=== PATIENT | male | born 1970 | race Caucasian/White ===

== ENCOUNTER 2016-11-24 20:58 | Inpatient (IN) | payer SELFPAY ==
[~2016-11-24] VITALS: Ht 182.9 cm; Wt 88.1 kg
[2016-11-24 21:36] LABS: BASO # 0.1 x10^3/uL (0.0-0.2); BASO % 1 % (0-3); EOS % 2 % (0-3); HEMATOCRIT 50.2 % (39.0-53.0); HEMOGLOBIN 16.9 g/dL (13.0-17.5); LYMPH % 24 % (24-48); MEAN CORPUSCULAR HEMOGLOBIN 31 pg (25-35); MEAN CORPUSCULAR HGB CONC 34 g/dL (31-37); MEAN CORPUSCULAR VOLUME 90 fL (79-100); MONO % 7 % (0-9); NEUT % 66 % (31-73); PLATELET COUNT 286 x10^3/uL (140-400); RED BLOOD COUNT 5.55 x10^6/uL (4.30-5.70); RED CELL DISTRIBUTION WIDTH 13.2 % (11.5-14.5); WHITE BLOOD COUNT 8.4 x10^3/uL (4.0-11.0)
--- NOTE | 2016-11-24 21:36 | PHYS DOC ---
Past Medical History Past Medical History: Anxiety, Hypertension, [place], Other Additional Past Medical Histor: TBI - Memory problems, Cardiac arrest Past Surgical History: Appendectomy Alcohol Use: Occasionally Drug Use: Methamphetamine Adult General Chief Complaint Chief Complaint: HYPERTENSION HPI HPI Patient is a 46 year old F who presents with hypertension and chest pain. Patient is an alcoholic who is at a rehabilitation facility called [facility] who sent him over to the emergency room to be evaluated for his elevated blood pressure. Patient states he has not drank in over a week. Patient is from [place] and here just for rehabilitation. Patient does take blood pressure medication. Patient states he's had no history of a CABG or bypass surgery however did have cardiac arrest and was brought back after multiple rounds of CPR. In the emergency room patient complains of some chest tightness with some peripheral anesthesias. Patient denies any shortness of breath. Patient denies any nausea/vomiting/diarrhea. Patient states he does have a history of anxiety however does not feel anxious at this time. Patient has no other complaints. Review of Systems Review of Systems GEN: Denies fevers, chills, sweats HEENT: Denies blurred vision, sore throat CV: chest pain RESP: Denies shortness of air, cough GI: Denies n/v/d NEURO: Paresthesias MSK: Denies weakness, joint pain/swelling Current Medications Current Medications Current Medications Medications (Trade) Dose Ordered Sig/Shannan Start Time Stop Time Status Last Admin Dose Admin Info (Do NOT chart on this entry -- for MONITORING) 1 each PRN DAILY PRN 11/24/16 22:15 11/26/16 22:14 Iohexol (Omnipaque 300 Mg/ml) 75 ml 1X ONCE 11/24/16 22:30 11/24/16 22:31 DC 11/24/16 22:18 75 ML Allergies Allergies Allergies Coded Allergies Type Severity Reaction Last Updated Verified No Known Drug Allergies 11/24/16 No Physical Exam Physical Exam GEN.: No apparent distress. Alert and oriented. HEENT: Head is normocephalic, atraumatic NECK: Supple. LUNGS: CTAB. HEART: RRR, S1, S2 present. Peripheral pulses intact ABDOMEN: Soft, nontender. Positive bowel sounds. EXTREMITIES: Without any cyanosis. NEUROLOGIC: Normal speech, normal tone PSYCHIATRIC: Normal affect, normal mood. SKIN: No ulcerations Current Patient Data Vital Signs Vital Signs Date Time Temp Pulse Resp B/P (MAP) Pulse Ox O2 Delivery O2 Flow Rate FiO2 11/24/16 22:15 77 11/24/16 21:30 14 11/24/16 20:58 98.5 148/102 (117) 99 Room Air 98.5 Lab Values Laboratory Tests Test 11/24/16 21:00 11/24/16 21:05 White Blood Count 8.4 x10^3/uL (4.0-11.0) Red Blood Count 5.55 x10^6/uL (4.30-5.70) Hemoglobin 16.9 g/dL (13.0-17.5) Hematocrit 50.2 % (39.0-53.0) Mean Corpuscular Volume 90 fL (79-100) Mean Corpuscular Hemoglobin 31 pg (25-35) Mean Corpuscular Hemoglobin Concent 34 g/dL (31-37) Red Cell Distribution Width 13.2 % (11.5-14.5) Platelet Count 286 x10^3/uL (140-400) Neutrophils (%) (Auto) 66 % (31-73) Lymphocytes (%) (Auto) 24 % (24-48) Monocytes (%) (Auto) 7 % (0-9) Eosinophils (%) (Auto) 2 % (0-3) Basophils (%) (Auto) 1 % (0-3) Neutrophils # (Auto) 5.6 x10^3uL (1.8-7.7) Lymphocytes # (Auto) 2.0 x10^3/uL (1.0-4.8) Monocytes # (Auto) 0.6 x10^3/uL (0.0-1.1) Eosinophils # (Auto) 0.2 x10^3/uL (0.0-0.7) Basophils # (Auto) 0.1 x10^3/uL (0.0-0.2) Sodium Level 142 mmol/L (136-145) Potassium Level 4.0 mmol/L (3.5-5.1) Chloride Level 104 mmol/L (98-107) Carbon Dioxide Level 33 mmol/L (21-32) H Anion Gap 5 (6-14) L Blood Urea Nitrogen 10 mg/dL (8-26) Creatinine 0.9 mg/dL (0.7-1.3) Estimated GFR (Cockcroft-Gault) 90.1 BUN/Creatinine Ratio 11 (6-20) Glucose Level 84 mg/dL (70-99) Calcium Level 8.9 mg/dL (8.5-10.1) Total Bilirubin 0.2 mg/dL (0.2-1.0) Aspartate Amino Transferase (AST) 19 U/L (15-37) Alanine Aminotransferase (ALT) 32 U/L (16-63) Alkaline Phosphatase 72 U/L (46-116) Troponin I Quantitative < 0.017 ng/mL (0.000-0.055) Total Protein 6.7 g/dL (6.4-8.2) Albumin 3.5 g/dL (3.4-5.0) Albumin/Globulin Ratio 1.1 (1.0-1.7) Ethyl Alcohol Level < 10 mg/dL (0-10) Urine Collection Type Unknown Urine Color Yellow Urine Clarity Clear Urine pH 6.5 Urine Specific [place] 1.015 Urine Protein Negative mg/dL (NEG-TRACE) Urine Glucose (UA) Negative mg/dL (NEG) Urine Ketones (Stick) Negative mg/dL (NEG) Urine Blood Negative (NEG) Urine Nitrite Negative (NEG) Urine Bilirubin Negative (NEG) Urine Urobilinogen Dipstick 0.2 mg/dL (0.2 mg/dL) Urine Leukocyte Esterase Negative (NEG) Urine RBC Occ /HPF (0-2) Urine WBC 0 /HPF (0-4) Urine Squamous Epithelial Cells Few /LPF Urine Bacteria 0 /HPF (0-FEW) Urine Mucus Slight /LPF Urine Opiates Screen Neg (NEG) Urine Methadone Screen Neg (NEG) Urine Barbiturates Neg (NEG) Urine Phencyclidine Screen Neg (NEG) Urine Amphetamine/Methamphetamine Neg (NEG) Urine Benzodiazepines Screen Neg (NEG) Urine Cocaine Screen Neg (NEG) Urine Cannabinoids Screen Neg (NEG) Urine Ethyl Alcohol Neg (NEG) Laboratory Tests 11/24/16 21:00 Laboratory Tests 11/24/16 21:00 EKG EKG 2103: Normal sinus rhythm rate of 79 no STEMI[] Radiology/Procedures Radiology/Procedures CTA chest NAD[] Course & Med Decision Making Course & Med Decision Making Pertinent Labs and Imaging studies reviewed. (See chart for details) ED course: Patient was seen and examined emergency room cardiac workup was ordered along with urine drug screen and alcohol level and a CT angios the chest 2249: Patient was reevaluated and updated on lab results and CT findings, patient still has tightness in his chest does not feel right and left, hospital for further workup 2304: Discussed CC/HP/PMH with Dr. azevedo and recommends admit [] MDM: After reviewing the chart, CC/HPI/PMH, physical exam, [lab results], [ radiological results], I do not believe the patient having a STEMI, PE or thoracic aortic dissection. Given the patient's history of cardiac arrest and persistent symptoms we'll admit him for further evaluation and management. [] Dragon Disclaimer Dragon Disclaimer This electronic medical record was generated, in whole or in part, using a voice recognition dictation system. Departure Departure Impression: Primary Impression: Chest pain Additional Impressions: Hypertension Alcohol abuse Disposition: ADMITTED INPATIENT Admitting Physician: Alda Azevedo Condition: STABLE Problem Qualifiers MILLY ROY DO Nov 24, 2016 21:36
[2016-11-24 21:39] LABS: BILIRUBIN,URINE NEGATIVE (NEG); GLUCOSE,URINE NEGATIVE (NEG); NITRITE,URINE NEGATIVE (NEG); PH,URINE 6.5; PROTEIN,URINE NEGATIVE (NEG-TRACE); UROBILINOGEN,URINE 0.2 mg/dL (0.2 mg/dL)
[2016-11-24 21:44] LABS: BACTERIA,URINE 0 /HPF (0-FEW); BARBITURATES NEG (NEG); BENZODIAZEPINES NEG (NEG); CANNABINOIDS NEG (NEG); COCAINE NEG (NEG); METHADONE NEG (NEG); OPIATES NEG (NEG); PHENCYCLIDINE NEG (NEG); RBC,URINE OCC /HPF (0-2); SQUAMOUS EPITHELIAL CELL,UR FEW /LPF; WBC,URINE 0 /HPF (0-4)
[2016-11-24 21:48] LABS: CALCIUM 8.9 mg/dL (8.5-10.1); CREATININE 0.9 mg/dL (0.7-1.3); GFR 90.1
[2016-11-24 21:54] LABS: ALBUMIN 3.5 g/dL (3.4-5.0); ALBUMIN/GLOBULIN RATIO 1.1 (1.0-1.7); TOTAL BILIRUBIN 0.2 mg/dL (0.2-1.0); TOTAL PROTEIN 6.7 g/dL (6.4-8.2)
[2016-11-24] MEDS ORDERED: CONTRAST GIVEN MC PRN (22:15)
[2016-11-24] MEDS ORDERED: IOHEXOL 300 MG/ML 75 ML VIAL IV ONE (22:30)
--- NOTE | 2016-11-24 22:44 | RAD ---
CT pulmonary angiogram with intravenous contrast History: Chest pain Comparison: None. Technique: CT pulmonary angiogram of the chest with attention to the pulmonary arteries was performed after the administration of intravenous contrast, 75 mL Omnipaque-300. Axial 2-D reconstructions were obtained. Coronal 3-D MIPS were obtained of the pulmonary arterial vasculature of the chest. Exposure: One or more of the following individualized dose reduction techniques were utilized for this examination: 1. Automated exposure control 2. Adjustment of the mA and/or kV according to patient size 3. Use of iterative reconstruction technique Findings: Pulmonary arteries are adequately opacified. There is no evidence of pulmonary embolism. Trachea and mainstem bronchi appear patent. Visualized thyroid appears symmetric. No acute airspace disease is identified. No pneumothorax or pleural effusion is seen. No mediastinal lymphadenopathy is seen. Thoracic aorta has normal caliber. Heart and pericardium are unremarkable. Calcified left mediastinal lymph nodes are seen. Impression: 1. No evidence of pulmonary embolism. No acute abnormality identified in the chest. Electronically signed by: Wili Bond MD (11/24/2016 10:40 PM) [facility]
[2016-11-24] MEDS ORDERED: MORPHINE SULFATE 4 MG/ML DISP.SYRIN. IV PRN (23:00)
[2016-11-24] MEDS ORDERED: ONDANSETRON PF 4 MG/2 ML VIAL. IV PRN (23:00)
[2016-11-24] MEDS ORDERED: ACETAMINOPHEN 325 MG TABLET. PO PRN (23:00)
[2016-11-24] MEDS ORDERED: NITROGLYCERIN SUBLINGUAL 0.4 MG BOTTLE OF 25. SL PRN (23:00)
[2016-11-25 01:20] VITALS: BP 135/94
[2016-11-25] MEDS ORDERED: DIAZ5TAB PO (01:26)
[2016-11-25] MEDS ORDERED: [UNRECOGNIZED DRUG - OTHER] (01:26)
[2016-11-25] MEDS ORDERED: diphenhydrAMINE HCL 25 MG CAPSULE PO PRN (01:45)
[2016-11-25 03:00] VITALS: BP 150/95
[2016-11-25 05:24] LABS: BASO # 0.1 x10^3/uL (0.0-0.2); BASO % 1 % (0-3); EOS % 3 % (0-3); HEMATOCRIT 46.9 % (39.0-53.0); HEMOGLOBIN 15.7 g/dL (13.0-17.5); LYMPH # 2.3 x10^3/uL (1.0-4.8); LYMPH % 30 % (24-48); MEAN CORPUSCULAR HEMOGLOBIN 30 pg (25-35); MEAN CORPUSCULAR HGB CONC 33 g/dL (31-37); MEAN CORPUSCULAR VOLUME 91 fL (79-100); MONO % 6 % (0-9); NEUT % 60 % (31-73); PLATELET COUNT 239 x10^3/uL (140-400); RED BLOOD COUNT 5.18 x10^6/uL (4.30-5.70); RED CELL DISTRIBUTION WIDTH 13.7 % (11.5-14.5); WHITE BLOOD COUNT 7.6 x10^3/uL (4.0-11.0)
[2016-11-25 05:54] LABS: CALCIUM 8.6 mg/dL (8.5-10.1); CREATININE 0.9 mg/dL (0.7-1.3); GFR 90.1; POTASSIUM 3.9 mmol/L (3.5-5.1)
[2016-11-25 07:30] VITALS: BP 138/94
--- NOTE | 2016-11-25 07:43 | RAD ---
Indication: Atraumatic midsternal chest pain. Technique: Upright portable chest radiograph was obtained. No comparison is available. Findings: The lungs are clear. The heart is not enlarged and there is no heart failure. There are calcified mediastinal and left hilar lymph nodes. Bony structures are intact. Leads overlie the patient. Impression: No acute thoracic findings.
--- NOTE | 2016-11-25 08:13 | EKG ---
[facility] [address] [place] [address] Test Date: 2016-11-24 Test Time: 21:03:12 Pat Name: MARY TORRES Department: Room: Gender: M [employer] Liaison: : 1970 Requested By: MILLY ROY Order Number: [id number] Reading MD: Measurements Intervals [place] Rate: 79 P: 41 TN: 158 QRS: 39 QRSD: 84 T: 29 QT: 340 QTc: 395 Interpretive Statements SINUS RHYTHM NON SPECIFIC ST-T ABNORMALITY (ELEVATION) OTHERWISE NORMAL ECG RI6.01 Unconfirmed report No previous ECG available for comparison
--- NOTE | 2016-11-25 08:43 | PDOC1 ---
History and Physical Date of Admission Date of Admission DATE: 11/25/16 TIME: 08:39 Identification/Chief Complaint Chief Complaint chest pain Problems: Source Source: Chart review, Patient History of Present Illness History of Present Illness Mr. Felix is a 46 year old F who presents with acute and worsening chest pain. PAin to left chest, also right shoulder and radiation down arm. Sharp and stabbing pain with dyspnea at rest, no new MOTA. pain better with iv pain meds, Patient is an alcoholic who is at a rehabilitation facility called [facility] Patient had previously taken blood pressure medication. no other drug or tobacco history and no EtOH over one week, EtOH intake was about a pint a day, and ramping up. Prior history of asphyxiation, (suicide attempt after drug allergy reaction) and cardiac arrest and was brought back after multiple rounds of CPR. 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) Heme/Onc: No pertinent hx Hepatobiliary: No pertinent hx Psych: Addictions, Other Rheumatologic: No pertinent hx Infectious disease: No pertinent hx ENT: No pertinent hx Renal/: No pertinent hx Endocrine: No pertinent hx Dermatology: No pertinent hx Family History Family History: Alcohol Abuse Social History Smoke: No ALCOHOL: heavy (quit) Drugs: None Current Problem List Problem List Problems Medical Problems: (1) Alcohol abuse Status: Acute (2) Chest pain Status: Acute (3) Hypertension Status: Acute Problems: Current Medications Current Medications Current Medications Iohexol (Omnipaque 300 Mg/ml) 75 ml 1X ONCE IV Last administered on t 22:18; Start 11/24/16 at 22:30; Stop 11/24/16 at 22:31; Status DC Info (Do NOT chart on this entry -- for MONITORING) 1 each PRN DAILY PRN MC SEE COMMENTS; Start 11/24/16 at 22:15; Stop 11/26/16 at 22:14 Ondansetron HCl (Zofran) 4 mg PRN Q8HRS PRN IV NAUSEA/VOMITING; Start at 23:00; Stop 11/25/16 at 22:59 Morphine Sulfate 4 mg PRN Q2HR PRN IV SEVERE PAIN; Start 11/24/16 at 23:00; Stop 11/25/16 at 22:59 Acetaminophen (Tylenol) 650 mg PRN Q4HRS PRN PO FEVER; Start 11/24/16 at 23:00 ; Stop 11/25/16 at 22:59 Nitroglycerin (Nitrostat) 0.4 mg PRN Q5MIN PRN SL CHEST PAIN; Start 11/24/16 at 23:00; Stop 11/25/16 at 22:59 Diphenhydramine HCl (Benadryl) 50 mg PRN Q6HRS PRN PO ITCHING Last administered on 11/25/16t 01:57; Start 11/25/16 at 01:45 Zolpidem Tartrate (Ambien) 5 mg PRN QHS PRN PO INSOMNIA; Start 11/25/16 at 21: 00 Pneumococcal Polyvalent Vaccine (Pneumovax 23) 0.5 ml ONCE ONCE VAX IM ; Start 11/25/16 at 09:00; Stop 11/25/16 at 09:01 Influenza Virus Vaccine Quadrival (Fluarix Quad [id number] Syringe) 0.5 ml ONCE ONCE VAX IM ; Start 11/25/16 at 09:00; Stop 11/25/16 at 09:01 Active Scripts Active Reported [b/p medicine] Valium (Diazepam) 5 Mg Tablet 5 Mg PO BID Allergies Allergies: Coded Allergies: No Known Drug Allergies (Unverified , 11/24/16) ROS General: No: Chills, Night Sweats, Fatigue, Malaise, Appetite, Other PSYCHOLOGICAL ROS: No: Anxiety, Behavioral Disorder, Concentration difficultie , Decreased libido, Depression, Disorientation, Hallucinations, Hostility, Irritablity, Memory difficulties, Mood Swings, Obsessive thoughts, Physical abuse, Sexual abuse, Sleep disturbances, Suicidal ideation, Other Eyes: No Blurry vision, No Decreased vision, No Double vision, No Dry eyes, No Excessive tearing, No Eye Pain, No Itchy Eyes, No Loss of vision, No Photophobia , No Scotomata, No Uses contacts, No Uses glasses, No Other HEENT: No: Heacaches, Visual Changes, Hearing change, Nasal congestion, Nasal discharge, Oral lesions, Sinus pain, Sore Throat, Epistaxis, Sneezing, Snoring, Tinnitus, Vertigo, Vocal changes, Other Respiratory: No: Cough, Hemoptysis, Orthopnea, Pleuritic Pain, Shortness of breath, SOB with excertion, Sputum Changes, Stridor, Tachypnea, Wheezing, Other Cardiovascular: yes Chest Pain, No Palpitations, No Orthopnea, No Paroxysmal Noc. Dyspnea, No Edema, No Lt Headedness, No Other Gastrointestinal: No Nausea, No Vomiting, No Abdominal Pain, No Diarrhea, No Constipation, No Melena, No Hematochezia, No Other Genitourinary: No Dysuria, No Frequency, No Incontinence, No Hematuria, No Retention, No Discharge, No Urgency, No Pain, No Flank Pain, No Other, No , No , No , No , No , No , No Musculoskeletal: No Gait Disturbance, No Joint Pain, No Joint Stiffness, No Joint Swelling, No Muscle Pain, No Muscular Weakness, No Pain In:, No Swelling In:, No Other Neurological: No Behavorial Changes, No Bowel/Bladder ControlChng, No Confusion , No Dizziness, No Gait Disturbance, No Headaches, No Impaired Coord/balance, No Memory Loss, No Numbness/Tingling, No Seizures, No Speech Problems, No Tremors, No Visual Changes, No Weakness, No Other Skin: No Dry Skin, No Eczema, No Hair Changes, No Lumps, No Mole Changes, No Mottling, No Nail Changes, No Pruritus, No Rash, No Skin Lesion Changes, No Other, No Acne Physical Exam General: Alert, Oriented X3, Cooperative, No acute distress HEENT: Atraumatic, EOMI, Mucous membr. moist/pink Lungs: Clear to auscultation, Normal air movement Heart: no gallops, no murmurs Abdomen: Normal bowel sounds, Soft Rectal Exam: not examined Extremities: No clubbing, No edema Skin: No rashes, No breakdown, No significant lesion Neuro: Normal gait, Normal speech, Normal tone, Sensation intact Psych/Mental Status: Mental status NL, Mood NL Vitals Vitals Vital Signs Date Time Temp Pulse Resp B/P (MAP) Pulse Ox O2 Delivery O2 Flow Rate FiO2 11/25/16 03:00 98.2 67 20 150/95 (113) 95 Room Air 98.2 Labs Labs Laboratory Tests Test 11/24/16 21:00 11/24/16 21:05 11/25/16 04:46 White Blood Count 8.4 x10^3/uL (4.0-11.0) 7.6 x10^3/uL (4.0-11.0) Red Blood Count 5.55 x10^6/uL (4.30-5.70) 5.18 x10^6/uL (4.30-5.70) Hemoglobin 16.9 g/dL (13.0-17.5) 15.7 g/dL (13.0-17.5) Hematocrit 50.2 % (39.0-53.0) 46.9 % (39.0-53.0) Mean Corpuscular Volume 90 fL (79-100) 91 fL (79-100) Mean Corpuscular Hemoglobin 31 pg (25-35) 30 pg (25-35) Mean Corpuscular Hemoglobin Concent 34 g/dL (31-37) 33 g/dL (31-37) Red Cell Distribution Width 13.2 % (11.5-14.5) 13.7 % (11.5-14.5) Platelet Count 286 x10^3/uL (140-400) 239 x10^3/uL (140-400) Neutrophils (%) (Auto) 66 % (31-73) 60 % (31-73) Lymphocytes (%) (Auto) 24 % (24-48) 30 % (24-48) Monocytes (%) (Auto) 7 % (0-9) 6 % (0-9) Eosinophils (%) (Auto) 2 % (0-3) 3 % (0-3) Basophils (%) (Auto) 1 % (0-3) 1 % (0-3) Neutrophils # (Auto) 5.6 x10^3uL (1.8-7.7) 4.6 x10^3uL (1.8-7.7) Lymphocytes # (Auto) 2.0 x10^3/uL (1.0-4.8) 2.3 x10^3/uL (1.0-4.8) Monocytes # (Auto) 0.6 x10^3/uL (0.0-1.1) 0.5 x10^3/uL (0.0-1.1) Eosinophils # (Auto) 0.2 x10^3/uL (0.0-0.7) 0.2 x10^3/uL (0.0-0.7) Basophils # (Auto) 0.1 x10^3/uL (0.0-0.2) 0.1 x10^3/uL (0.0-0.2) Sodium Level 142 mmol/L (136-145) 143 mmol/L (136-145) Potassium Level 4.0 mmol/L (3.5-5.1) 3.9 mmol/L (3.5-5.1) Chloride Level 104 mmol/L (98-107) 106 mmol/L (98-107) Carbon Dioxide Level 33 mmol/L (21-32) 31 mmol/L (21-32) Anion Gap 5 (6-14) 6 (6-14) Blood Urea Nitrogen 10 mg/dL (8-26) 10 mg/dL (8-26) Creatinine 0.9 mg/dL (0.7-1.3) 0.9 mg/dL (0.7-1.3) Estimated GFR (Cockcroft-Gault) 90.1 90.1 BUN/Creatinine Ratio 11 (6-20) Glucose Level 84 mg/dL (70-99) 96 mg/dL (70-99) Calcium Level 8.9 mg/dL (8.5-10.1) 8.6 mg/dL (8.5-10.1) Total Bilirubin 0.2 mg/dL (0.2-1.0) Aspartate Amino Transf (AST/SGOT) 19 U/L (15-37) Alanine Aminotransferase (ALT/SGPT) 32 U/L (16-63) Alkaline Phosphatase 72 U/L (46-116) Troponin I Quantitative < 0.017 ng/mL (0.000-0.055) < 0.017 ng/mL (0.000-0.055) Total Protein 6.7 g/dL (6.4-8.2) Albumin 3.5 g/dL (3.4-5.0) Albumin/Globulin Ratio 1.1 (1.0-1.7) Ethyl Alcohol Level < 10 mg/dL (0-10) Urine Collection Type Unknown Urine Color Yellow Urine Clarity Clear Urine pH 6.5 Urine Specific [place] 1.015 Urine Protein Negative mg/dL (NEG-TRACE) Urine Glucose (UA) Negative mg/dL (NEG) Urine Ketones (Stick) Negative mg/dL (NEG) Urine Blood Negative (NEG) Urine Nitrite Negative (NEG) Urine Bilirubin Negative (NEG) Urine Urobilinogen Dipstick 0.2 mg/dL (0.2 mg/dL) Urine Leukocyte Esterase Negative (NEG) Urine RBC Occ /HPF (0-2) Urine WBC 0 /HPF (0-4) Urine Squamous Epithelial Cells Few /LPF Urine Bacteria 0 /HPF (0-FEW) Urine Mucus Slight /LPF Urine Opiates Screen Neg (NEG) Urine Methadone Screen Neg (NEG) Urine Barbiturates Neg (NEG) Urine Phencyclidine Screen Neg (NEG) Urine Amphetamine/Methamphetamine Neg (NEG) Urine Benzodiazepines Screen Neg (NEG) Urine Cocaine Screen Neg (NEG) Urine Cannabinoids Screen Neg (NEG) Urine Ethyl Alcohol Neg (NEG) Laboratory Tests Test 11/24/16 21:00 11/24/16 21:05 11/25/16 04:46 White Blood Count 8.4 x10^3/uL (4.0-11.0) 7.6 x10^3/uL (4.0-11.0) Red Blood Count 5.55 x10^6/uL (4.30-5.70) 5.18 x10^6/uL (4.30-5.70) Hemoglobin 16.9 g/dL (13.0-17.5) 15.7 g/dL (13.0-17.5) Hematocrit 50.2 % (39.0-53.0) 46.9 % (39.0-53.0) Mean Corpuscular Volume 90 fL (79-100) 91 fL (79-100) Mean Corpuscular Hemoglobin 31 pg (25-35) 30 pg (25-35) Mean Corpuscular Hemoglobin Concent 34 g/dL (31-37) 33 g/dL (31-37) Red Cell Distribution Width 13.2 % (11.5-14.5) 13.7 % (11.5-14.5) Platelet Count 286 x10^3/uL (140-400) 239 x10^3/uL (140-400) Neutrophils (%) (Auto) 66 % (31-73) 60 % (31-73) Lymphocytes (%) (Auto) 24 % (24-48) 30 % (24-48) Monocytes (%) (Auto) 7 % (0-9) 6 % (0-9) Eosinophils (%) (Auto) 2 % (0-3) 3 % (0-3) Basophils (%) (Auto) 1 % (0-3) 1 % (0-3) Neutrophils # (Auto) 5.6 x10^3uL (1.8-7.7) 4.6 x10^3uL (1.8-7.7) Lymphocytes # (Auto) 2.0 x10^3/uL (1.0-4.8) 2.3 x10^3/uL (1.0-4.8) Monocytes # (Auto) 0.6 x10^3/uL (0.0-1.1) 0.5 x10^3/uL (0.0-1.1) Eosinophils # (Auto) 0.2 x10^3/uL (0.0-0.7) 0.2 x10^3/uL (0.0-0.7) Basophils # (Auto) 0.1 x10^3/uL (0.0-0.2) 0.1 x10^3/uL (0.0-0.2) Sodium Level 142 mmol/L (136-145) 143 mmol/L (136-145) Potassium Level 4.0 mmol/L (3.5-5.1) 3.9 mmol/L (3.5-5.1) Chloride Level 104 mmol/L (98-107) 106 mmol/L (98-107) Carbon Dioxide Level 33 mmol/L (21-32) 31 mmol/L (21-32) Anion Gap 5 (6-14) 6 (6-14) Blood Urea Nitrogen 10 mg/dL (8-26) 10 mg/dL (8-26) Creatinine 0.9 mg/dL (0.7-1.3) 0.9 mg/dL (0.7-1.3) Estimated GFR (Cockcroft-Gault) 90.1 90.1 BUN/Creatinine Ratio 11 (6-20) Glucose Level 84 mg/dL (70-99) 96 mg/dL (70-99) Calcium Level 8.9 mg/dL (8.5-10.1) 8.6 mg/dL (8.5-10.1) Total Bilirubin 0.2 mg/dL (0.2-1.0) Aspartate Amino Transf (AST/SGOT) 19 U/L (15-37) Alanine Aminotransferase (ALT/SGPT) 32 U/L (16-63) Alkaline Phosphatase 72 U/L (46-116) Troponin I Quantitative < 0.017 ng/mL (0.000-0.055) < 0.017 ng/mL (0.000-0.055) Total Protein 6.7 g/dL (6.4-8.2) Albumin 3.5 g/dL (3.4-5.0) Albumin/Globulin Ratio 1.1 (1.0-1.7) Ethyl Alcohol Level < 10 mg/dL (0-10) Urine Collection Type Unknown Urine Color Yellow Urine Clarity Clear Urine pH 6.5 Urine Specific [place] 1.015 Urine Protein Negative mg/dL (NEG-TRACE) Urine Glucose (UA) Negative mg/dL (NEG) Urine Ketones (Stick) Negative mg/dL (NEG) Urine Blood Negative (NEG) Urine Nitrite Negative (NEG) Urine Bilirubin Negative (NEG) Urine Urobilinogen Dipstick 0.2 mg/dL (0.2 mg/dL) Urine Leukocyte Esterase Negative (NEG) Urine RBC Occ /HPF (0-2) Urine WBC 0 /HPF (0-4) Urine Squamous Epithelial Cells Few /LPF Urine Bacteria 0 /HPF (0-FEW) Urine Mucus Slight /LPF Urine Opiates Screen Neg (NEG) Urine Methadone Screen Neg (NEG) Urine Barbiturates Neg (NEG) Urine Phencyclidine Screen Neg (NEG) Urine Amphetamine/Methamphetamine Neg (NEG) Urine Benzodiazepines Screen Neg (NEG) Urine Cocaine Screen Neg (NEG) Urine Cannabinoids Screen Neg (NEG) Urine Ethyl Alcohol Neg (NEG) VTE Prophylaxis Ordered VTE Prophylaxis Devices: No VTE Pharmacological Prophylaxi: Yes Assessment/Plan Assessment/Plan EtOH abuse in remission, in current treatment anxiety stable, none current chest pain, angina, check lipids angina to right arm, 7/10 pain with pressure, r.o ACS htn costochrondritis left chest, will lidoderm 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
[2016-11-25] MEDS ORDERED: LIDOCAINE (700MG/PATCH) PATCH. TD SCH (09:00)
[2016-11-25] MEDS ORDERED: FLU VACC QS2017-18 (36MOS+)/PF 0.5 ML SYRINGE. VAX IM ONE (09:00)
[2016-11-25] MEDS ORDERED: PNEUMOC CONJ VACC 23-VALENT 0.5 ML VIAL. VAX IM ONE (09:00)
[2016-11-25] MEDS ORDERED: ENOXAPARIN 40 MG/0.4 ML SYRINGE. SQ SCH (09:00)
[2016-11-25 09:33] LABS: CHOLESTEROL/HDL RATIO 3.3
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
[2016-11-25 10:30] VITALS: BP 131/96
[2016-11-25] MEDS ORDERED: LISINOPRIL 5 MG TABLET. PO SCH (11:30)
--- NOTE | 2016-11-25 15:00 | RAD ---
APPROVED REPORT Test Type: Exercise Stress Nurse/Tech: cristo ricketts Test Indications: chest pain Cardiac History: HTN, NM, SEE EHR Medications: SEE EHR Medical History: NONE STATED, SEE EHR Resting ECG: SR Resting Heart Rate: 94 bpm Resting Blood Pressure: 145/86mmHg Pretest Chest Pain: No chest pain Nurse/Tech Notes LUNG SOUNDS CLEAR, S1S2 WNL. Consent: The procedure was explained to the patient in lay terms. Informed consent was witnessed. Gurdeep eout was entered into [employer]. History and Stress Test performed by RT Maxi (R) (N) Stress Symptoms LEG FATIGUE. PT WAS AT THE MOST BRISK WALK, NO QUITE A RUN. ABLE TO ANSWER QUESTIONS. OCCASIONAL PVC NOTED. POST EXERCISE Reason for Termination: Reached target heart rate Target HR: Yes Max HR: 152 bpm 104% of Maximum Predicted HR: 146 bpm Exercise duration: 9:31 min:sec, 4 Stage Exercise capacity: 13.4METs Max Blood Pressure: 157/94mmHg Blood Pressure response to exercise: Normal blood pressure response during stress. Heart Rate response to exercise: WNL Chest Pain: No. Arrhythmia: No. ST Change: No. INTERPRETATION Stress EKG Conclusion: Baseline EKG showed sinus rhythm. No ischemic changes at peak stress. No arr hythmias. Imaging Protocol IMAGE PROTOCOL: Rest Tc-99m/stress Tc-99m 1 day Rest: Stress: Viability: Radiopharm.Tc99m [id number] Sestamibi [id number] 34.6mCi Duration 15min. 10min. Img Date 11/25/2016 11/25/2016 Inj-Img [id number]. 60min. Rest Admin Site:IV - Left AntecubitalAdministrator:ELTON Falcon, ARRT (R)(N) Stress Admin Site: IV - Left AntecubitalAdministrator: RT Maxi (R)(N) STRESS DATA End Diast. Vol.130.0mlAv. Heart Rate98.0bpm End Syst. Vol.44.0mlCO Index BSA0.0L/min Myocardial Lxas863.0gEject. Ouezuekl50.0% Stress Rates Pk. Fill Rate3.91EDV/secLVtime Pk. Fill 181.88msec Pk. Empty Rate4.14ESV/secLVtime Pk. Eject77.79msec 1/3 Pk. Fill1.76EDV/sec Stress Scores Regional WT2.00Summed WT11.00 Regional WM0.00Summed WM4.00 Study quality was good. Left Ventricular size was Normal at Rest and Stress. Lung uptake was Normal. Left Ventricular ejection fraction is 66%. The rest and stress images show normal perfusion, normal contraction and thickening. LV Perf. Quant 17 Seg. SSS0.00 17 Seg. SRS7.00 17 Seg. SDS0.00 Stress Defect Extent (% LAD)0.00Rest Defect Extent (% LAD)20.00Rev. Defect Extent (% LAD)0.00 Stress Defect Extent (% LCX) 0.00Rest Defect Extent (% LCX)0.00Rev. Defect Extent (% LCX)0.00 Stress Defect Extent (% RCA)0.00Rest Defect Extent (% RCA)0.00Rev. Defect Extent (% RCA)0.00 Stress Defect Extent (% CROW)0.00Rest Defect Extent (% CROW)8.70Rev. Defect Extent (% CROW)0.00 Conclusion 1. Treadmill exercise cardioisotope stress test did not show any evidence of ischemia or infarct. 2. Normal left ventricular systolic function with ejection fraction calculated at 66%. 3. Patient had excellent activity tolerance. Low risk for cardiac events.
[2016-11-25 15:30] VITALS: BP 136/86
[2016-11-25] MEDS ORDERED: LISI-338 PO (17:09)
[2016-11-25] MEDS ORDERED: ZOLPIDEM 5 MG TABLET. PO PRN (21:00)
== END 2016-11-25 18:45 | disposition home or self-care (01) | DRG 206 ==
LOC: ER 20:58 → 5 NORTH 22:51
PROVIDERS: ADMIT Internal Medicine; ATTEND Internal Medicine
DX: M94.0 Chondrocostal junction syndrome [Tietze] (principal); Z86.74 Personal history of sudden cardiac arrest; I20.9 Angina pectoris, unspecified; E78.5 Hyperlipidemia, unspecified; F10.21 Alcohol dependence, in remission; F41.9 Anxiety disorder, unspecified; I10 Essential (primary) hypertension; F15.10 Other stimulant abuse, uncomplicated; I25.2 Old myocardial infarction; Z81.1 Family history of alcohol abuse and dependence; Z88.5 Allergy status to narcotic agent; Z90.49 Acquired absence of other specified parts of digestive tract; Z88.9 Allergy status to unspecified drugs, medicaments and biological substances; Z82.49 Family history of ischemic heart disease and other diseases of the circulatory system
CPT/HCPCS: 36415; 71010; 71275; 78452; 80048; 80053; 80061; 80307; 81001; 84484; 85025; 90686; 90732; 93005; 93017; 96374; 96376; A9500; G0480; J1650; Q0163; Q9967; 99285-25; G0479

== ENCOUNTER → 2018-12-15 | Outpatient (CLI) | payer OTHER, MEDICAID ==
[~2018-12-15] MED LIST: DIAZ5TAB PO; IBUP-1027 PO; LISI-338 PO; OLOPATADINE OU; OXYC1TAB15 PO; SERT50TA PO; [UNRECOGNIZED DRUG - OTHER]
--- NOTE | 2018-12-15 14:53 | RAD ---
EXAM: ULTRASOUND-GUIDED THYROID FINE-NEEDLE ASPIRATION. HISTORY: Right thyroid nodule. Ultrasound-guided biopsy is requested. FINDINGS: The procedure along with its risks and benefits were explained to the patient. They agreed to proceed. A timeout procedure was performed. Sonographic images of the thyroid gland were obtained. The 3.0 x 2.8 solid greater than cystic target nodule in the right lobe was adequately visualized for biopsy. The overlying skin was sterilely prepped and infiltrated with 1% lidocaine for local anesthesia. Under ultrasound guidance, 4 aspirates were obtained using 25-gauge needles. These were hand delivered to pathology who determined them adequate for diagnosis. A sterile dressing was placed. There were no immediate complications. IMPRESSION: 1. Successful ultrasound-guided fine-needle aspiration of the right thyroid nodule. Electronically signed by: Jovi Tamayo MD (12/15/2018 2:50 PM) [facility]
== END | disposition home or self-care (01) ==
LOC: US 14:00
PROVIDERS: ATTEND Surgery
DX: E04.1 Nontoxic single thyroid nodule (principal)
CPT/HCPCS: 10005; 76942; 88173; 88305

== ENCOUNTER 2019-01-12 06:44 | Observation (INO) | payer OTHER, MEDICAID ==
[2019-01-12] VITALS (11 sets, daily range): BP systolic 118–147; BP diastolic 67–99
[~2019-01-12] VITALS: Ht 182.9 cm; Wt 94.5 kg
[~2019-01-12 06:44] MED LIST changes: +ACETAMINOPHEN 500 MG TABLET PO PRN; +BUPIVACAINE-EPI 0.25%-1:200000 MPF 30 ML VIAL. INJ ONE; -OXYC1TAB15 PO
[2019-01-12] MEDS ORDERED: PROCHLORPERAZINE 10 MG/2 ML VIAL. IV PRN (07:00)
[2019-01-12] MEDS ORDERED: IV RINGERS,LACTATED 1000ML 1,000 ML IV SCH (07:00)
[2019-01-12] MEDS ORDERED: ONDANSETRON PF 4 MG/2 ML VIAL. IV PRN ×2 (07:00→09:30)
[2019-01-12] MEDS ORDERED: fentaNYL PF VIAL 100 MCG/2 ML VIAL IV PRN (07:00)
[2019-01-12] MEDS ORDERED: LIDOCAINE 1% PF 2 ML VIAL. ID PRN (07:00)
[2019-01-12] MEDS ORDERED: ONDANSETRON PF 4 MG/2 ML VIAL. ONE (07:13)
[2019-01-12] MEDS ORDERED: DEXAMETHASONE SOD PHOS 4 MG/ML VIAL ONE ×3 (07:13→07:14)
[2019-01-12] MEDS ORDERED: SUCCINYLCHOLINE 200 MG/10 ML VIAL. ONE ×2 (07:13→08:38)
[2019-01-12] MEDS ORDERED: PROPOFOL 20 ML IV ONE (07:13)
[2019-01-12] MEDS ORDERED: LIDOCAINE 2% PF 5 ML VIAL. ONE (07:13)
[2019-01-12] MEDS ORDERED: MIDAZOLAM HCL/PF 2 MG/2 ML VIAL. ONE (07:14)
[2019-01-12] MEDS ORDERED: PROPOFOL 50 ML IV ONE (07:14)
[2019-01-12] MEDS ORDERED: REMIFENTANIL 1 MG VIAL. IV ONE (07:21)
[2019-01-12] MEDS ORDERED: PHENYLEPHRINE 10 MG/ML VIAL. ONE ×2 (07:27)
[2019-01-12] MEDS ORDERED: GLYCOPYRROLATE 1 MG/5 ML VIAL. ONE (07:29)
[2019-01-12] MEDS ORDERED: ceFAZolin 2GM PREMIX 2 GM/50 ML BAG IV ONE (08:00)
[2019-01-12] MEDS ORDERED: ESMOLOL 100 MG/10 ML VIAL. IVP ONE (09:02)
[2019-01-12] MEDS ORDERED: SEVOFLURANE 16 TO 30 MINUTES. IH ONE (09:11)
[2019-01-12] MEDS ORDERED: DESFLURANE 61 TO 120 MINUTES IH ONE (09:11)
[2019-01-12] MEDS: IV DEXTROSE 5%-LACT RINGERS 1,000 ML IV SCH ×2 (09:17→22:49)
--- NOTE | 2019-01-12 09:17 | PDOC4 ---
Operative Note Operative Note Date: 01/12/2019 Preoperative diagnosis: Right thyroid mass Postoperative diagnosis: Same Procedure: Right thyroidectomy Surgeon: Angel Crenshawprinting bindery assistant: Leif Specimen: Right thyroid Dictation: Patient is a 48-year-old male is complained of difficulty with swallowing and turning head to the right side ultrasound of his thyroid showed a large thyroid nodule on the right side biopsy showed follicular cells benign. In light of his symptoms recommended right thyroidectomy also has a significant family history of thyroid disease. Procedure right thyroidectomy was explained t o the patient in detail risks benefits were also discussed including bleeding infection injury to recurrent laryngeal nerve causing hoarseness or loss of voice alternatives to this procedure also discussed with the patient who seemed to understand and gave both verbal and written consent had the procedure performed. Patient was taken to the operating room placed in supine position general anesthesia was initiated once patient was sleep and intubated his neck was prepped and draped usual sterile fashion using ChloraPrep a horizontal incision was made after being injected with quarter percent Marcaine with epinephrine 2 finger breaths above the sternal notch was carried down through the subcutaneous tissue using the cautery by hemostasis distance muscle was in cised and a posterior flap was propagated with blunt and sharp dissection as well as a superior flap with blunt and sharp dissection a Mahorner retractor was placed. Strap muscles in the midline were incised exposing the thyroid gland changes returned to the right thyroid nodule was brought up into the wound along with the right thyroid gland the superior pole was dissected and the superior vessels were tied with a 2-0 Vicryl stitch. Similarly with the inferior vessels were tied. The gland was removed with Harmonic scalpel in the midline and sent for pathology. Wound was irrigated and suctioned dry of the left thyroid was palpated no nodules were noted. The wound was then closed the strap muscles in the midline with a running 3-0 Vicryl latissimus muscle was reapproximated with 3-0 Vicryl interrupted sutures and the skin was approximated for subarticular Monocryl Mastisol Steri-Strips and island dressing was applied. Patient was awakened expend an operating room taken to recovery in stable condition all sponge instrument needle counts listed as correct estimated blood loss 20 mL. RODOLFO RAPP MD Jan 12, 2019 09:17
[2019-01-12] MEDS ORDERED: fentaNYL PF VIAL 100 MCG/2 ML VIAL ONE ×2 (09:27→10:05)
[2019-01-12] MEDS ORDERED: oxyCODONE/APAP 5/325 1 TAB TABLET PO PRN (09:30)
[2019-01-12] MEDS ORDERED: 0.9 % SODIUM CHLORIDE 10 ML DISP.SYRIN. IV PRN (09:30)
[2019-01-12] MEDS: fentaNYL PF VIAL 100 MCG/2 ML VIAL IV PRN ×4 (09:32→10:43)
[2019-01-12] MEDS ORDERED: PROCHLORPERAZINE 10 MG/2 ML VIAL. ONE (09:42)
[2019-01-12] MEDS: KETOROLAC 15 MG/ML VIAL. IV SCH ×2 (14:20→17:35)
[2019-01-12] MEDS: oxyCODONE/APAP 5/325 1 TAB TABLET PO PRN ×3 (15:08→22:49)
[2019-01-13] MEDS: KETOROLAC 15 MG/ML VIAL. IV SCH ×3 (00:50→11:56)
[2019-01-13 02:20] VITALS: BP 134/88
[2019-01-13] MEDS: oxyCODONE/APAP 5/325 1 TAB TABLET PO PRN ×2 (03:34→09:35)
[2019-01-13 07:00] VITALS: BP 128/85
--- NOTE | 2019-01-13 08:34 | PDOC ---
SURGICAL PROGRESS NOTE Subjective Patient doing okay does complain of some with swallowing or turning his head right or left. Did have some postop nausea but this is seems resolved Vital Signs Vital Signs Date Time Temp Pulse Resp B/P (MAP) Pulse Ox O2 Delivery O2 Flow Rate FiO2 01/13/19 04:34 Room Air 01/13/19 02:20 98.0 69 16 134/88 (103) 93 98.0 01/12/19 19:42 2.0 I&O Intake and Output 01/13/19 07:00 Intake Total 2670 ml Output Total 2420 ml Balance 250 ml Intake Oral 1620 ml IV Total 1050 ml Output Urine Total 2400 ml Estimated Blood Loss 20 ml # Voids 3 PATIENT HAS A SHAH: No General: Alert, Oriented X3, Cooperative, mild distress HEENT: Other (wounds clean dry and intact no erythema some mild ecchymoses) Assessment/Plan Status post right thyroidectomy, plan on discharge this afternoon RODOLFO RAPP MD Jan 13, 2019 08:34
[2019-01-13] MEDS ORDERED: OXYC1TAB15 PO (08:52)
--- NOTE | 2019-01-13 08:54 | DISCH ---
DISCHARGE INSTRUCTIONS Condition on Discharge Condition on Discharge: Stable Activity After Discharge Activity Instructions for Disc: Resume previous activity, Activity as tolerated Other activity instructions: ok to shower Driving Instructions after Dis: Do not drive (while taking pain medication) Diet after Discharge Diet after Discharge: Regular Wound Incision Care Wound/Incision Care: May get incision wet, No wound care needed Contacting the after DC Call your doctor for: Concerns you may have Follow-Up Follow up with: Dr Ortiz 2 weeks, call to schedule [phone] ADITHYA URBAN APRN Jan 13, 2019 08:54
--- NOTE | 2019-01-13 09:16 | NUR ---
SS following for discharge planning. SS reviewed pt chart. Pt is from home and is currently on room air. Discharge order on the chart for home with self care.
[2019-01-13 11:00] VITALS: BP 126/82
[2019-01-13] MEDS: IV DEXTROSE 5%-LACT RINGERS 1,000 ML IV SCH (11:57)
--- NOTE | 2019-01-13 14:05 | NUR ---
Pt left unit by ambulation via private vehicle. Pt's IVs removed with no complications. Discharge paperwork discussed with pt. Pt stable upon discharge.
[2019-01-14] MEDS ORDERED: FLU VAX QS 2019-20 (36MOS+)/PF 0.5 ML SYRINGE. VAX IM ONE (09:00)
--- NOTE | 2019-01-14 09:07 | PATHOLOGY ---
[facility] Accession Number: [id number] . 01 Material submitted: . thyroid gland - RIGHT THYROID - FS. Modifiers: right . 02 Frozen section diagnosis: . INTRAOPERATIVE CONSULTATION WITH FROZEN SECTION: FSA1. Right thyroid lobe excision: - Adenomatous nodule. No evidence of malignancy. - The results are reported to Dr. Ortiz in the operating room. (JPM:agatha 01/13/2019) . FROZEN SECTION GROSS DESCRIPTION FOR INTRAOPERATIVE CONSULTATION: The specimen is received fresh for intraoperative consultation and is designated "right thyroid". This consists of a lobe of thyroid tissue which weighs 14 grams and measures up to 6.0 x 2.7 x 2.0 cm in greatest dimension. There is a suture attached to the superior pole. The anterior surface appears intact. The posterior surface shows focal pale gomez and brown-black cautery changes. There is a nodule palpated within the medial mid to lower thyroid lobe, which measures approximately 2.5 cm. The external surface is inked with black ink. The lobe is serially sectioned from superior to inferior. Sectioning reveals a well-circumscribed yellowish brown nodule showing focal cystic change and hemorrhage. The remaining thyroid tissue has a reddish-purple meaty thyroid appearance. There is an addition small harris brown nodule measuring up to 0.5 cm. A dealer compliance representative portion of the larger nodule is submitted for frozen section as FSA1. The tissue remaining from frozen section is submitted for permanent sections as A1. (JPM:agatha 01/13/2019) . Frozen section performed at [facility], [address] [place] [address], [place] [address]. ELMER/RAY . 02 Diagnosis: Thyroid lobe, right thyroid lobectomy: - Adenomatous nodules, few, with dominant nodule measuring 2.5 cm in greatest dimension and showing focal degenerative changes. - No parathyroid glands identified. (JPM:didier; 01/13/2019) MBR 01/13/2019 1628 Local . 02 Comment: The entire thyroid lobe is submitted for histologic evaluation. There is no evidence of malignancy. (JPM:yard goods salesperson; 01/13/2019) . 02 Electronically signed: . Jc Donnelly MD, Pathologist NPI- [id number] . 01 Gross description: . PLEASE SEE FROZEN SECTION FOR GROSS DESCRIPTION. . The remainder of the larger nodule is submitted as A2-A5. The remaining thyroid lobe is submitted as A6-A10. . . . . /QTP 01/13/2019 1625 Local . 02 Pathologist provided ICD-10: E04.1 . 02 CPT . 801945 Specimen Comment: A courtesy copy of this report has been sent to [phone], [phone] Specimen Comment: [id number] Specimen Comment: Report sent to / DR VELOZ Performed at: 01 [facility] [address] [facility] [address], [place] [id number] MD Agapito Manriquez MD Phone: [phone] Performed at: 02 [facility] [address] [place], [place] [id number] MD Jc Donnelly MD Phone: [phone]
== END 2019-01-13 14:05 | disposition home or self-care (01) ==
LOC: SURG 06:44 → 4 NORTH 09:58
PROVIDERS: ADMIT Surgery; ATTEND Surgery
DX: E04.1 Nontoxic single thyroid nodule (principal); Z23 Encounter for immunization
CPT/HCPCS: 60210; 90471; 90686; 96374; 96376; A7015; G0378; G0379; J0330; J0696; J0780; J1100; J1885; J2001; J2250; J2405; J2704; J3010; J3490

== ENCOUNTER → 2019-08-05 | Outpatient (CLI) | payer OTHER, MEDICAID ==
[~2019-08-05] MED LIST changes: -ACETAMINOPHEN 500 MG TABLET PO PRN; -BUPIVACAINE-EPI 0.25%-1:200000 MPF 30 ML VIAL. INJ ONE; +OXYC1TAB15 PO
== END ==
LOC: LAB 13:53
PROVIDERS: ATTEND Internal Medicine Gastroenterology
DX: Z01.818 Encounter for other preprocedural examination (principal); Z11.59 Encounter for screening for other viral diseases; K62.5 Hemorrhage of anus and rectum
CPT/HCPCS: U0003-CS